=== PATIENT | male | born 1980 | race Caucasian/White ===

== ENCOUNTER 2020-10-30 18:45 | Emergency (ER) | payer SELFPAY ==
[~2020-10-30] VITALS: Ht 172.7 cm; Wt 100.0 kg
--- NOTE | 2020-10-30 18:54 | ED Upper Extremity ---
General Chief Complaint: Upper Extremity Stated Complaint: PAINFUL BUMP LT ELBOW Source: patient Exam Limitations: no limitations History of Present Illness Date Seen by Provider: Oct 30, 2020 Time Seen by Provider: 18:54 Initial Comments 40-year-old male presents with a subcutaneous abscess on his left upper arm. Reports his been there for about 3 weeks. Patient tried to put a needle in and drain of an anginal come out. He has not been seen by another provider. Comes in today because it continues to worsen get more red. He has a history of MRSA. Patient has no fevers chills or other complaints at this time Allergies and Home Medications Patient Home Medication List Home Medication List Reviewed: Yes Review of Systems Constitutional: No chills, No fever EENTM: see HPI Respiratory: no symptoms reported Cardiovascular: no symptoms reported Genitourinary: no symptoms reported Musculoskeletal: no symptoms reported Skin: see HPI Psychiatric/Neurological: No Symptoms Reported Past Xoreknu-Hugkzs-Gboxsz Hx Past Med/Social Hx: Reviewed Nursing Past Med/Soc Hx Patient Social History Recent Foreign Travel: No Contact w/Someone Who Travel: No Physical Exam Vital Signs Capillary Refill : Height, Weight, BMI Height: '" Weight: lbs. oz. kg; BMI Method: General Appearance: WD/WN, no apparent distress Cardiovascular: normal peripheral pulses, regular rate, rhythm Respiratory: no respiratory distress, no accessory muscle use Gastrointestinal: non tender, soft Shoulder: normal inspection Elbow/Forearm: normal inspection Wrist: Yes normal inspection Hand: normal inspection Skin: other (approximate 3 cm abscess left upper arm with some mild surrounding erythema) Procedures/Interventions I&D : Blade Size: 15 I & D Procedure: betadine prep Progress Large amount of bloody purulent discharge, patient tolerated well. Departure Impression Primary Impression: Abscess of left upper extremity Disposition: HOME, SELF-CARE Condition: Stable Departure-Patient Inst. Referrals: NO,LOCAL PHYSICIAN (PCP/Family) Primary Care Physician Patient Instructions: Abscess Incision and Drainage (DC) Scripts Sulfamethoxazole/Trimethoprim (Bactrim Ds Tablet) 1 Each Tablet 1 EACH PO BID for 7 Days, #14 TAB Prov: MARIA A GOODE DO 10/30/20 MARIA A GOODE DO Oct 30, 2020 18:54
[2020-10-30 18:56] VITALS: BP 152/94
[2020-10-30] MEDS ORDERED: SULF1TAB35 PO (19:07)
== END 2020-10-30 19:10 | disposition home or self-care (01) ==
LOC: ER FS 18:47
DX: L02.414 Cutaneous abscess of left upper limb (principal)
CPT/HCPCS: 87070; 87205